=== PATIENT | male | born 1930 | race Caucasian/White ===

== ENCOUNTER 2018-09-19 11:48 | Emergency (ER) | payer OTHER, MEDICARE ==
[~2018-09-19] VITALS: Ht 175.3 cm; Wt 79.5 kg
[~2018-09-19 11:48] MED LIST: ASPIRIN EC81 MG PO; CIPROFLOXACN500 MG PO; DISALCID PO; FLEXERIL PO; LOSARTAN/HCT1 TA1 PO; MULTIVITAMIN PO; NAPROSYN500 MG PO; PREVACID30 M3 PO; SIMVASTATIN40 MG PO; VITAMIN B-12500 MCG PO
[2018-09-19 12:42] LABS: IMMATURE GRANULOCYTES 0.5 % (0.0-5.0); MEAN CELL VOLUME 95.6 fL CALC (80.0-100.0); MEAN CORPUSCULAR HGB 32.4 pG CALC (26.0-32.0); NEUT# 3.82 thou/uL (1.82-7.42); RED BLOOD COUNT 3.39 mill/uL (4.70-6.10); RED CELL DISTRI WIDTH 14.2 % (11.5-15.5)
[2018-09-19 12:52] LABS: HEMATOCRIT 32.4 % (39.0-50.0)
[2018-09-19 12:56] LABS: ALBUMIN 4.1 g/dL (3.2-5.0); BILIRUBIN, TOTAL 0.5 mg/dL (0.0-1.4); CREATININE 1.4 mg/dL (0.7-1.3); POTASSIUM 4.5 mmol/l (3.5-5.1); TOTAL PROTEIN 6.8 g/dL (6.3-8.2)
[2018-09-19] MEDS ORDERED: LANSOPRAZOLE30 MG PO (15:18)
[2018-09-19] MEDS ORDERED: OXAPROZIN600 MG PO (15:18)
[2018-09-19] MEDS ORDERED: BENICAR HCT1 TA2 PO (15:19)
[2018-09-19] MEDS ORDERED: NEURONTIN600 MG PO (15:20)
[2018-09-19 16:08] LABS: URINE BILIRUBIN - DIPSTICK NEGATIVE (NEGATIVE); URINE BLOOD DIPSTICK NEGATIVE (NEGATIVE); URINE COLOR YELLOW; URINE GLUCOSE - DIPSTICK NEGATIVE (NEGATIVE); URINE KETONE NEGATIVE (NEGATIVE); URINE LEUK ESTERASE NEGATIVE (NEGATIVE); URINE NITRITE - DIPSTICK NEGATIVE (Negative); URINE PROTEIN - DIPSTICK NEGATIVE (NEG-TRACE); URINE UROBILINOGEN - DIPSTICK 0.2 E.U./dL (0.2)
[2018-09-19 16:45] VITALS: BP 155/68
== END 2018-09-19 16:48 | disposition home or self-care (01) | DRG 313 ==
LOC: ED 11:48
PROVIDERS: Family Medicine
DX: R07.89 Other chest pain (principal); I25.2 Old myocardial infarction; V53.6XXA Passenger in pick-up truck or van injured in collision with car, pick-up truck or van in traffic accident, initial encounter
CPT/HCPCS: Q9967